=== PATIENT | female | born 1965 | race Caucasian/White ===

== ENCOUNTER 2018-05-31 00:05 | Observation (INO) | payer SELFPAY ==
--- NOTE | 2018-05-31 00:11 | ER Document Report ---
ED Cardiac - General Stated Complaint: CHEST PAIN Time Seen by Provider: 05/31/18 00:10 Notes: 53-year-old female patient to the emergency department via EMS for severe chest pain. Patient states that she was watching TV when all of a sudden she developed severe chest pain. Pain radiated to her bilateral shoulders. Recently she describes having nausea that comes and goes. Some dyspnea with exertion as well as generally feeling tired. Patient does smoke and has for 40 years. Does not go to the doctor. Family history of heart disease. Father had 5 heart attacks but in his 80s. - HPI Patient complains to provider of: Chest pain Use of: denies: Alcohol, Amphetamines, Bath salts, Caffeine, Cocaine, Decongestants, Other Was the onset of pain: Sudden Is the pain a: New problem Chest pain location: Back Quality of pain: Stabbing Chest pain radiation location: Left shoulder, Right shoulder, Back Severity now: None Severity at worst: Severe Pain level currently: 0 Chest pain precipitating factors: At Rest Cardiac risk factors: Smoker, + Family history Positive cardiac history: No Associated symptoms: Nausea/vomiting Past Medical History - General Information source: Patient - Social History Smoking Status: Current Every Day Smoker Cigarette use (# per day): Yes Frequency of alcohol use: Occasional Drug Abuse: None Lives with: Family Family History: CAD, Hypertension, Malignancy Review of Systems - Review of Systems Notes: Constitutional: denies: Chills, fever, weakness EENT: denies: Eye discharge, Blurred vision, Tearing, Double vision, Nose congestion, Nose discharge, Throat swelling, Mouth pain Cardiovascular: Chest pain. Denies tachycardia, does endorse some dyspnea with exertion. Respiratory: denies: Cough, Hurts to breathe, Wheezing, Shortness of breath Gastrointestinal: denies: Abdominal pain, Diarrhea, Vomiting, Black stools. Does endorse that she has had some nausea recently Genitourinary: denies: Burning, Dysuria, Discharge, Frequency, Flank pain, Hematuria Musculoskeletal: denies: Joint pain, Joint swelling, Muscle pain, Muscle stiffness, back pain Hematologic/Lymphatic: denies: Anemia, Easy bleeding, Easy bruising, Blood clots Neurological/Psychological: denies: Confusion, Dementia, Depression, Loss of consciousness Physical Exam - Vital signs Vitals: Temp Pulse Resp BP Pulse Ox 98.5 F 73 18 106/76 99 05/31/18 00:15 05/31/18 00:15 05/31/18 00:15 05/31/18 00:15 05/31/18 00:15 Interpretation: Normal - General General appearance: Appears well, Alert - HEENT Head: Normocephalic, Atraumatic Eyes: Normal Pupils: PERRL - Respiratory Respiratory status: No respiratory distress Chest status: Nontender Breath sounds: Normal Chest palpation: Normal - Cardiovascular Rhythm: Regular Heart sounds: Normal auscultation Murmur: No - Abdominal Inspection: Normal Distension: No distension Bowel sounds: Normal Tenderness: Nontender Organomegaly: No organomegaly - Back Back: Normal, Nontender - Extremities General upper extremity: Normal inspection, Nontender, Normal color, Normal ROM , Normal temperature General lower extremity: Normal inspection, Nontender, Normal color, Normal ROM , Normal temperature, Normal weight bearing. No: Doc's sign - Neurological Neuro grossly intact: Yes Cognition: Normal Orientation: AAOx4 Ezio Coma Scale Eye Opening: Spontaneous [place] Coma Scale Verbal: Oriented [place] Coma Scale Motor: Obeys Commands [place] Coma Scale Total: 15 Speech: Normal Motor strength normal: LUE, RUE, LLE, RLE Sensory: Normal - Psychological Associated symptoms: Normal affect, Normal mood - Skin Skin Temperature: Warm Skin Moisture: Dry Skin Color: Normal Course - Re-evaluation Re-evalutation: 05/31/18 01:06 First set of labs are unremarkable. EKG normal. Troponin is negative. Patient is a smoker female who described chest pain at rest that radiated to her back. Does have a positive family history. Patient does need to be admitted for rule out. Will consult with hospitalist for admission at this time. Aspirin has been given. She is chest pain-free at this time resting in no acute distress. 05/31/18 01:17 Laboratory 05/30/18 05/30/18 05/30/18 23:35 23:35 23:35 WBC 8.6 RBC 4.18 Hgb 13.0 Hct 38.4 MCV 92 MCH 31.0 MCHC 33.7 RDW 15.0 H Plt Count 483 H Seg Neutrophils % 35.3 L Lymphocytes % 52.6 H Monocytes % 7.9 Eosinophils % 3.5 Basophils % 0.7 Absolute Neutrophils 3.0 Absolute Lymphocytes 4.5 Absolute Monocytes 0.7 Absolute Eosinophils 0.3 Absolute Basophils 0.1 Sodium 141.7 Potassium 4.4 Chloride 105 Carbon Dioxide 28 Anion Gap 9 BUN 14 Creatinine 0.68 Est GFR ( Amer) > 60 Est GFR (Non-Af Amer) > 60 Glucose 88 Calcium 9.9 Total Bilirubin 0.5 Direct Bilirubin 0.3 Neonat Total Bilirubin Not Reportable Neonat Direct Bilirubin Not Reportable Neonat Indirect Bili Not Reportable AST 56 H ALT 23 Alkaline Phosphatase 46 Creatine Kinase 87 CK-MB (CK-2) 1.69 Troponin I < 0.012 Total Protein 7.4 Albumin 4.3 Chest X-Ray 05/31/18 00:09 IMPRESSION: There is no acute pleural-parenchymal process seen in the imaged lung rubio. Location of Interpretation: [facility] - Vital Signs Vital signs: Temp Pulse Resp BP Pulse Ox 98.5 F 73 18 106/76 99 05/31/18 00:15 05/31/18 00:15 05/31/18 00:15 05/31/18 00:15 05/31/18 00:15 - Laboratory Result Diagrams: 05/30/18 23:35 05/30/18 23:35 Laboratory results interpreted by me: 05/30/18 05/30/18 23:35 23:35 RDW 15.0 H Plt Count 483 H Seg Neutrophils % 35.3 L Lymphocytes % 52.6 H AST 56 H - EKG Interpretation by La EKG shows normal: Sinus rhythm, [place], Intervals, QRS Complexes, ST-T Waves Discharge - Discharge Clinical Impression: Chest pain at rest Condition: Good Disposition: ADMITTED OBSERVATION Admitting Provider: Hospitalist - [facility] Unit Admitted: Telemetry
[2018-05-31 00:26] LABS: ABSOLUTE BASOPHILS # (AUTO) 0.1 10^3/uL (0.0-0.2); ABSOLUTE EOSINOPHILS # (AUTO) 0.3 10^3/uL (0.0-0.6); ABSOLUTE LYMPHOCYTES (AUTO) 4.5 10^3/uL (0.5-4.7); ABSOLUTE MONOCYTES (AUTO) 0.7 10^3/uL (0.1-1.4); BASOPHILS % (AUTO) 0.7 % (0-2); EOSINOPHILS % (AUTO) 3.5 % (0-6); HEMATOCRIT 38.4 % (36.0-47.0); LYMPHOCYTES % (AUTO) 52.6 % (13-45); MEAN CORPUSCULAR HGB CONC 33.7 g/dL (32.0-36.0); MEAN CORPUSCULAR VOLUME 92 fl (80-97); MONOCYTES % (AUTO) 7.9 % (3-13); PLATELET COUNT 483 10^3/uL (150-450); RED BLOOD COUNT 4.18 10^6/uL (3.72-5.28); SEGMENTED NEUTROPHILS % (AUTO) 35.3 % (42-78); TOTAL CELLS COUNTED % (AUTO) 100 %; WHITE BLOOD COUNT 8.6 10^3/uL (4.0-10.5)
[2018-05-31 00:41] LABS: ALANINE AMINOTRANSFERASE 23 U/L (9-52); ALBUMIN 4.3 g/dL (3.5-5.0); ALKALINE PHOSPHATASE 46 U/L (38-126); ANION GAP 9 (5-19); ASPARTATE AMINO TRANSFERASE 56 U/L (14-36); BILIRUBIN,DIRECT 0.3 mg/dL (0.0-0.4); BILIRUBIN,TOTAL 0.5 mg/dL (0.2-1.3); BLOOD UREA NITROGEN 14 mg/dL (7-20); CALCIUM 9.9 mg/dL (8.4-10.2); CARBON DIOXIDE 28 mmol/L (22-30); CHLORIDE 105 mmol/L (98-107); CREATINE KINASE 87 U/L (30-135); GLUCOSE 88 mg/dL (75-110); POTASSIUM 4.4 mmol/L (3.6-5.0); SODIUM 141.7 mmol/L (137-145); TOTAL PROTEIN 7.4 g/dL (6.3-8.2)
--- NOTE | 2018-05-31 00:49 | RADIOLOGY REPORT (SQ) ---
PROCEDURE: XR CHEST 1 VIEW HISTORY: CP COMPARISON: None TECHNIQUE: Single projection of the chest was done. FINDINGS: The lung rubio are well inflated . There are no discrete airspace infiltrates, pneumothoraces or pleural effusions. The pulmonary vascularity is normal. The cardiomediastinal silhouette is unremarkable for patient's age and sex. IMPRESSION: There is no acute pleural-parenchymal process seen in the imaged lung rubio. Location of Interpretation: [facility]
[2018-05-31 00:51] LABS: CREATINE KINASE MB 1.69 ng/mL (<4.55)
[2018-05-31 00:52] LABS: TROPONIN I < 0.012 ng/mL
[2018-05-31] MEDS ORDERED: DEXTROSE 50%-WATER 25 GM/50 ML DISP.SYRIN IV PRN ×2 (01:26)
[2018-05-31] MEDS ORDERED: DEXTROSE 40% GEL 15 GM TUBE PO PRN ×2 (01:26)
[2018-05-31] MEDS ORDERED: GLUCAGON,HUMAN RECOMB 1 MG INJ SUBCUT PRN (01:26)
[2018-05-31 05:41] LABS: CHOLESTEROL 248.79 mg/dL (0-200); TRIGLYCERIDES 127 mg/dL (<150)
[2018-05-31 05:51] LABS: DIRECT LDL 129 mg/dL (<100)
[2018-05-31] MEDS ORDERED: IBUPROFEN 600 MG TABLET PO ONE (06:33)
--- NOTE | 2018-05-31 07:23 | PDOC H&P ---
History of Present Illness Admission Date/PCP: 05/31/18 01:22 none Patient complains of: Chest pain History of Present Illness: RUSSELL FANG is a 53 year old female with past medical history smoking and family history of CAD presents with chest pain. Patient states that she was watching TV when all of a sudden she developed severe chest pain. Pain radiated to her bilateral shoulders. Recently she describes having nausea that comes and goes. Some dyspnea with exertion as well as generally feeling tired. Patient does smoke and has for 40 years. Family history of heart disease. Father had 5 heart attacks but in his 80s. Patient denies fever chills or cough or abdominal pain. Patient's vitals were stable on arrival to emergency room. EKG showed sinus rhythm with nonspecific ST-T changes. Her troponin was negative. Chest x-ray was unremarkable. Social History Information Source: Patient Lives with: Family Smoking Status: Current Every Day Smoker Family History Family History: CAD, Hypertension, Malignancy Parental Family History Reviewed: No Children Family History Reviewed: No Sibling(s) Family History Reviewed.: No Medication/Allergy Allergies/Adverse Reactions: morphine Allergy (Verified 05/31/18 01:47) Hives Review of Systems All systems: reviewed and no additional remarkable complaints except as stated Physical Exam Vital Signs: Temp Pulse Resp BP Pulse Ox 98.5 F 73 12 120/66 96 05/31/18 00:15 05/31/18 00:15 05/31/18 05:31 05/31/18 05:31 05/31/18 05:31 General appearance: PRESENT: no acute distress, cooperative, thin, well- developed Head exam: PRESENT: atraumatic, normocephalic Eye exam: ABSENT: conjunctival injection, conjunctiva pink, conjunctiva pale, EOMI, nystagmus, periorbital swelling, PERRLA, scleral icterus, other Ear exam: ABSENT: bleeding, drainage, normal external ear exam, TM's normal bilaterally, other Neck exam: ABSENT: carotid bruit, JVD Respiratory exam: PRESENT: clear to auscultation toy. ABSENT: rhonchi, wheezes Cardiovascular exam: PRESENT: RRR, +S1, +S2. ABSENT: gallop, rubs, systolic murmur GI/Abdominal exam: PRESENT: normal bowel sounds, soft. ABSENT: organolmegaly, tenderness Rectal exam: PRESENT: deferred Neurological exam: PRESENT: alert, altered, awake, oriented to person, oriented to place, oriented to time, oriented to situation. ABSENT: motor sensory deficit Psychiatric exam: ABSENT: suicidal ideation Skin exam: ABSENT: rash Results Laboratory Results: 05/31/18 04:30 Triglycerides 127 Cholesterol 248.79 H LDL Cholesterol Direct 129 H VLDL Cholesterol 25.0 HDL Cholesterol 70 05/31/18 04:30 Troponin I 0.151 Impressions: Chest X-Ray 05/31/18 00:09 IMPRESSION: There is no acute pleural-parenchymal process seen in the imaged lung rubio. Location of Interpretation: [facility] Status: Image reviewed by me Assessment & Plan - Diagnosis (1) Chest pain at rest Is this a current diagnosis for this admission?: Yes Plan: Patient with significant family history and history of smoking presents with chest pain at rest. Will rule out ACS with serial cardiac enzyme will continue aspirin and start statin and nitroglycerin as needed.. Will consult cardiology service for further recommendation. (2) Smoker Is this a current diagnosis for this admission?: No - Time Time Spent: 30 to 50 Minutes
[2018-05-31] MEDS ORDERED: HYDROCODONE/ACETAMINOPHEN 5-325 MG TABLET ONE (12:00)
[2018-05-31] MEDS: ENOXAPARIN SODIUM INJ 40 MG/0.4 ML DISP.SYRIN SUBCUT SCH ×2 (12:01→12:31)
[2018-05-31] MEDS: ASPIRIN 325 MG TABLET, ENT COATED PO SCH (12:03)
[2018-05-31] MEDS ORDERED: HYDROCODONE/ACETAMINOPHEN 5-325 MG TABLET PO ONE (12:30)
--- NOTE | 2018-05-31 18:11 | RADIOLOGY REPORT (SQ) ---
EXAM DESCRIPTION: CT CHEST WITH COMPLETED DATE/TIME: 05/31/2018 6:00 pm REASON FOR STUDY: Chest Pain COMPARISON: None. TECHNIQUE: CT scan of the chest performed using helical scanning technique with dynamic intravenous contrast injection. Images reviewed with lung, soft tissue and bone windows. Reconstructed coronal and sagittal MPR images reviewed. All images stored on PACS. All CT scanners at this facility use dose modulation, iterative reconstruction, and/or weight based d osing when appropriate to reduce radiation dose to as low as reasonably achievable (ALARA). [facility]: Dose Right [facility]: CareDose [facility]: Dose Right [facility]: Teradose 4D [facility]: CustomInk CONTRAST TYPE AND DOSE: contrast/concentration: Isovue 370.00 mg/ml; Total Contrast Delivered: 80.0 ml; Total Saline Delivered: 50.0 ml RENAL FUNCTION: Creatinine 0.68 RADIATION DOSE: CT Rad equipment meets quality standard of care and radiation dose reduction techniq ues were employed. CTDIvol: 5.2 mGy. DLP: 208 mGy-cm. . LIMITATIONS: None. FINDINGS: LUNGS AND PLEURA: No opacities, nodules, masses. No pneumothorax. No effusions. HILAR AND MEDIASTINAL STRUCTURES: No identified masses or abnormal nodes. HEART AND VASCULAR STRUCTURES: No aneurysm or dissection. No central pulmonary emboli. No pericardi al effusion. HARDWARE: None in the chest. UPPER ABDOMEN: An enhancing mass is identified in the right lobe of the liver measuring 1.8 cm most c onsistent with an hemangioma although follow-up is recommended. THYROID AND OTHER SOFT TISSUES: A small thyroid nodule is identified on the left. No adenopathy. BONES: No significant finding. OTHER: No other significant finding. IMPRESSION: No significant intrathoracic abnormalities were identified. Other findings as noted abo ve. TECHNICAL DOCUMENTATION: JOB ID: [id number] Quality ID # [id number]: Final reports with documentation of one or more dose reduction techniques (e.g., Au tomated exposure control, adjustment of the mA and/or kV according to patient size, use of iterative reconstruction technique) 2010 [employer]- All Rights Reserved Reading location - IP/workstation name: [email or web address]
--- NOTE | 2018-05-31 18:54 | PDOC PROGRESS REPORT ---
Subjective Progress Note for:: 05/31/18 Subjective:: 53 years old white female with history of smoking and family history of coronary artery disease presents with atypical chest pain He is currently chest pain-free so far EKG troponin and CT angiogram of the chest are unremarkable Reason For Visit: CHEST PAIN Physical Exam Vital Signs: Temp Pulse Resp BP Pulse Ox 97.7 F 60 18 119/61 100 05/31/18 15:50 05/31/18 15:50 05/31/18 15:50 05/31/18 15:50 05/31/18 15:50 Intake & Output 05/30/18 05/31/18 06/01/18 06:59 06:59 06:59 Intake Total 1000 Balance 1000 Weight 137 lb 5.568 oz Exam: Patient no acute distress Alert oriented to time place person No anxiety or depression Head atraumatic normocephalic Pupils are equal reactive Regular rate and rhythm Lungs clear no distress Abdomen nontender nondistended Neurological exam unremarkable Results Laboratory Results: 05/31/18 04:30 Triglycerides 127 Cholesterol 248.79 H LDL Cholesterol Direct 129 H VLDL Cholesterol 25.0 HDL Cholesterol 70 05/31/18 05/31/18 04:30 10:32 Troponin I 0.151 0.167 Impressions: Chest CT 05/31/18 00:00 IMPRESSION: No significant intrathoracic abnormalities were identified. Other findings as noted above. Chest X-Ray 05/31/18 00:09 IMPRESSION: There is no acute pleural-parenchymal process seen in the imaged lung rubio. Location of Interpretation: [facility] Assessment & Plan - Diagnosis (1) Chest pain at rest Is this a current diagnosis for this admission?: Yes Plan: EKG troponins and CT angiogram of the chest are unremarkable Echo pending Stress test scheduled for tomorrow (2) Smoker Is this a current diagnosis for this admission?: No Plan: Patient was counseled
--- NOTE | 2018-05-31 19:11 | XCELERA REPORT ---
[address] [address] Transthoracic Echocardiogram Report Name: RUSSELL FANG Age: 53 yrs Gender: Female : 1965 Patient Status: Inpatient Patient Location: [address] [place], [place] [id number] Study Date: 05/31/2018 01:50 PM Procedure: A two-dimensional transthoracic echocardiogram with color flow Doppler was performed. Study Quality: Fair. Reason For Study: CHEST PAIN / MURMUR History: CHEST PAIN / MURMUR. Ordering Physician: MONI CARVER Performed By: Mireya Rizzo Interpretation Summary The left ventricle is normal in size. There is normal left ventricular wall thickness. LV EF is 65% Left ventricular systolic function is normal. Doppler measurements suggest normal left ventricular diastolic function The left ventricular wall motion is normal. There is no thrombus. There is no ventricular septal defect visualized. The right ventricle is normal in size and function. The right atrium is normal. The left atrial size is normal. The interatrial septum is intact with no evidence for an atrial septal defect. There is no evidence of mitral valve prolapse. There is no vegetation seen on the mitral valve. There is no mitral valve stenosis. There is no mitral regurgitation noted. There is no aortic valvular vegetation. There is no aortic valve stenosis No aortic regurgitation is present. There is no tricuspid stenosis. There is a trace amount of tricuspid regurgitation Right ventricular systolic pressure is normal. RVSP is 15 to 20 mm of Hg , with RA mean of 5 to 10. There is no pulmonic valvular stenosis. There is no pulmonic valvular regurgitation. The aortic root is normal size. The inferior vena cava appeared normal and decreased > 50% with respiration (RAP 5-10 mmHg) There is no pericardial effusion. MMode/2D Measurements & Calculations RVDd: 2.0 cm LVIDd: 4.9 cm FS: 38.5 % Ao root diam: 2.8 cm IVSd: 0.71 cm LVIDs: 3.0 cm EDV(Teich): 110.3 mlAo root area: 6.4 cm2 LVPWd: 0.77 cmESV(Teich): 34.6 ml EF(Teich): 68.7 % LVOT diam: 1.8 cm LVOT area: 2.5 cm2 Doppler Measurements & Calculations MV E max latonia: MV dec slope: Ao V2 max: LV V1 max P.4 cm/sec 119.8 cm/sec 5.1 mmHg MV A max latonia: 360.2 cm/sec2 Ao max PG: LV V1 max: 74.3 cm/sec MV dec time: 5.8 mmHg 112.5 cm/sec MV E/A: 1.1 0.23 sec SARAH(V,D): 2.4 cm2 PA V2 max: TR max latonia: 71.4 cm/sec 160.9 cm/sec PA max PG: TR max P.4 mmHg 2.0 mmHg Left Ventricle The left ventricle is normal in size. There is normal left ventricular wall thickness. LV EF is 65%. Left ventricular systolic function is normal. Doppler measurements suggest normal left ventricular diastolic function. The left ventricular wall motion is normal. There is no thrombus. There is no ventricular septal defect visualized. Right Ventricle The right ventricle is normal in size and function. Atria The right atrium is normal. The left atrial size is normal. The interatrial septum is intact with no evidence for an atrial septal defect. Mitral Valve There is no evidence of mitral valve prolapse. There is no vegetation seen on the mitral valve. There is no mitral valve stenosis. There is no mitral regurgitation noted. Aortic Valve There is no aortic valvular vegetation. There is no aortic valve stenosis. No aortic regurgitation is present. Tricuspid Valve There is no tricuspid stenosis. There is a trace amount of tricuspid regurgitation. Right ventricular systolic pressure is normal. RVSP is 15 to 20 mm of Hg , with RA mean of 5 to 10. Pulmonic Valve There is no pulmonic valvular stenosis. There is no pulmonic valvular regurgitation. Great Vessels The aortic root is normal size. The inferior vena cava appeared normal and decreased > 50% with respiration (RAP 5-10 mmHg). Effusions There is no pericardial effusion. : MONI CARVER > Moni Carver
[2018-05-31] MEDS: NICOTINE 21 MG/24 HR PATCH.TD24 TD SCH (19:49)
[2018-05-31] MEDS: NITROGLYCERIN 0.4 MG/TAB 25 TAB/BOTTLE SL PRN (21:09)
[2018-05-31] MEDS ORDERED: ATORVASTATIN CALCIUM 40 MG TABLET PO SCH (22:00)
[2018-05-31] MEDS ORDERED: LORAZEPAM 0.5 MG TABLET PO ONE (22:00)
--- NOTE | 2018-05-31 22:27 | EKG REPORT ---
SEVERITY:- ABNORMAL ECG - SINUS RHYTHM NONSPECIFIC INTRAVENTRICULAR CONDUCTION DELAY : Confirmed by: Chidi Rivera 31-May-2018 22:27:19
[2018-06-01 06:25] LABS: HEMATOCRIT 38.3 % (36.0-47.0); HEMOGLOBIN 12.9 g/dL (12.0-15.5); MEAN CORPUSCULAR HEMOGLOBIN 30.8 pg (27.0-33.4); MEAN CORPUSCULAR HGB CONC 33.7 g/dL (32.0-36.0); MEAN CORPUSCULAR VOLUME 91 fl (80-97); PLATELET COUNT 436 10^3/uL (150-450); RED CELL DISTRIBUTION WIDTH 14.8 % (11.5-14.0); WHITE BLOOD COUNT 9.3 10^3/uL (4.0-10.5)
[2018-06-01 06:41] LABS: CHOLESTEROL 270.52 mg/dL (0-200); TRIGLYCERIDES 156 mg/dL (<150)
[2018-06-01 06:52] LABS: DIRECT LDL 144 mg/dL (<100)
[2018-06-01 06:53] LABS: VLDL CHOLESTEROL 31.2 mg/dL (10-31)
[2018-06-01] MEDS: NITROGLYCERIN 0.4 MG/TAB 25 TAB/BOTTLE SL PRN ×2 (07:24→07:30)
[2018-06-01] MEDS ORDERED: NITROGLYCERIN/D5W 50 MG/250 ML RTUINJ IV ONE (07:34)
[2018-06-01] MEDS ORDERED: HYDROMORPHONE HCL INJ/PF 2 MG/ML AMPULE ONE (07:35)
[2018-06-01] MEDS ORDERED: NITROGLYCERIN 50 MG/D5W 250 ML IV PRN (07:40)
[2018-06-01] MEDS ORDERED: HYDROMORPHONE HCL INJ/PF 2 MG/ML AMPULE IV ONE (09:15)
[2018-06-01] MEDS ORDERED: ENOXAPARIN SODIUM INJ 60 MG/0.6 ML DISP.SYRIN SUBCUT ONE (09:15)
[2018-06-01] MEDS: HYDROMORPHONE HCL INJ/PF 2 MG/ML AMPULE INJ PRN ×2 (09:43→10:44)
[2018-06-01] MEDS: ASPIRIN 325 MG TABLET, ENT COATED PO SCH (10:24)
[2018-06-01] MEDS: NICOTINE 21 MG/24 HR PATCH.TD24 TD SCH (10:25)
[2018-06-01 11:28] VITALS: BP 115/72
[2018-06-01] MEDS: HYDROMORPHONE HCL INJ/PF 2 MG/ML AMPULE IV PRN ×2 (11:52→12:45)
--- NOTE | 2018-06-01 11:52 | PDOC TRANSFER SUMMARY ---
General Admission Date/PCP: 05/31/18 01:22 Admission Date: 05/31/18 Transfer Date: 06/01/18 Accepting Facility: [facility] Accepting Physician: Edison Horton MD Resuscitation Status: Full Code - Transfer Diagnosis (2) Chest pain at rest Is this a current diagnosis for this admission?: Yes (3) Smoker Is this a current diagnosis for this admission?: No - Transfer Medications Home Medications: No Home Medications 05/31/18 Transfer Medications: Current Medications Aspirin (Ecotrin 325 Mg Ec Tablet) 325 mg PO DAILY HANSA Stop: 06/30/18 09:59 Last Admin: 06/01/18 10:24 Dose: 325 mg Atorvastatin Calcium (Lipitor 40 Mg Tablet) 40 mg PO QHS [facility] Stop: 06/30/18 21:59 Last Admin: 05/31/18 21:09 Dose: 40 mg Dextrose (Dextrose Inj 50% Syringe (25 Gm/50 Ml)) 12.5 gm IV PRN PRN; Protocol PRN Reason: FOR BG 50-69 IN ALERT PATIENT Stop: 06/30/18 01:25 Dextrose (Dextrose Inj 50% Syringe (25 Gm/50 Ml)) 25 gm IV PRN PRN; Protocol PRN Reason: See Label Comments Stop: 06/30/18 01:25 Enoxaparin Sodium (Lovenox Inj 60 Mg/0.6 Ml Disp.Syrin) 60 mg SUBCUT Q12 HANSA Stop: 07/01/18 21:59 Glucagon (Glucagen Inj 1 Mg Vial) 1 mg SUBCUT PRN PRN; Protocol PRN Reason: Evaluate for BG < 70 Stop: 06/30/18 01:25 Glucose (Glutose 40% Gel 15 Gm Tube) 30 gm PO PRN PRN; Protocol PRN Reason: FOR BG < 50 IN ALERT PATIENT Stop: 06/30/18 01:25 Glucose (Glutose 40% Gel 15 Gm Tube) 15 gm PO PRN PRN; Protocol PRN Reason: For BG 50-69 in Alert Patient Stop: 06/30/18 01:25 Hydromorphone HCl (Dilaudid Inj/Pf 2 Mg/Ml Ampule) 1 mg INJ .X1 PRN PRN Reason: THIS MED IS NOT "PRN" Stop: 06/01/18 23:59 Last Admin: 06/01/18 10:44 Dose: 1 mg Hydromorphone HCl (Dilaudid Inj/Pf 2 Mg/Ml Ampule) 1 mg IV Q30MP PRN PRN Reason: CHEST PAIN Nitroglycerin/Dextrose (Ntg Rtu 50 Mg/D5w 250 Ml Iv Premix Bottle) 50 mg in 250 mls @ 0 mls/hr IV CONTINUOUS PRN; Protocol; Titrate PRN Reason: THIS MED IS NOT "PRN" Stop: 07/01/18 07:39 Last Titration: 06/01/18 11:10 Dose: 19.5 ml/hr, 19.5 mls/hr Nicotine (Nicoderm 21 Mg/24 Hr Transderm Patch) 1 each TD DAILY HANSA Stop: 06/30/18 19:29 Last Admin: 06/01/18 10:25 Dose: 1 each Sodium Chloride (Saline Flush 2.5 Ml Monoject Prefil Syrin) 2.5 ml IV Q8 HANSA Stop: 06/30/18 05:59 Last Admin: 06/01/18 05:55 Dose: 2.5 ml - Allergies Allergies/Adverse Reactions: morphine Allergy (Verified 05/31/18 01:47) Hives - Diet/Activity Discharge Diet: Other (Comments) - NPO Discharge Activity: Bedrest Hospital Course Hospital Course: 53 years old white female was history of smoking and family history of coronary artery disease. She presented was acute onset chest pain that occurred at rest. Patient was initially admitted for observation to rule out acute myocardial infarction. Her second troponin was elevated. Her chest pain did not resolve and she required IV nitroglycerin drip and multiple doses of IV Dilaudid. Her EKG did not show any ST elevations. Patient had nitroglycerin drip up to 60 mics per minute. Patient will be transferred to a tertiary hospital for possible cardiac cath. All video clerk already communicated with the outside facility video clerk and they accepted the patient. Physical Exam Vital Signs: Temp Pulse Resp BP Pulse Ox 98.2 F 61 18 115/72 97 06/01/18 02:53 06/01/18 11:15 05/31/18 23:24 06/01/18 11:15 06/01/18 02:53 Intake & Output 05/31/18 06/01/18 06/02/18 06:59 06:59 06:59 Intake Total 2562 68 Balance 2562 68 Weight 138 lb 14.259 oz Exam: Alert oriented to time place person Head atraumatic normocephalic Pupils are equal reactive Regular rate and rhythm Lungs clear no distress Abdomen nontender nondistended Neurological exam unremarkable Results Laboratory Results: 06/01/18 06:01 06/01/18 06/01/18 06:01 06:01 WBC 9.3 RBC 4.20 Hgb 12.9 Hct 38.3 MCV 91 MCH 30.8 MCHC 33.7 RDW 14.8 H Plt Count 436 Triglycerides 156 H Cholesterol 270.52 H LDL Cholesterol Direct 144 H VLDL Cholesterol 31.2 H HDL Cholesterol 65 05/31/18 05/31/18 05/31/18 04:30 10:32 18:30 Troponin I 0.151 0.167 0.185 06/01/18 06/01/18 06:01 07:45 Troponin I 0.178 0.155 Impressions: Chest CT 05/31/18 00:00 IMPRESSION: No significant intrathoracic abnormalities were identified. Other findings as noted above. Chest X-Ray 05/31/18 00:09 IMPRESSION: There is no acute pleural-parenchymal process seen in the imaged lung rubio. Location of Interpretation: [facility]eleradiology
[2018-06-01] MEDS ORDERED: PROMETHAZINE HCL INJ 25 MG/1 ML VIAL ONE (12:43)
--- NOTE | 2018-06-01 18:15 | EKG REPORT ---
SEVERITY:- BORDERLINE ECG - SINUS RHYTHM BORDERLINE T ABNORMALITIES, ANT-LAT LEADS : Confirmed by: Chidi Rivera 01-Jun-2018 18:14:45
--- NOTE | 2018-06-01 18:15 | EKG REPORT ---
SEVERITY:- ABNORMAL ECG - SINUS RHYTHM ABNRM R PROG, CONSIDER ASMI OR LEAD PLACEMENT : Confirmed by: Chidi Rivera 01-Jun-2018 18:14:50
[2018-06-01] MEDS ORDERED: ENOXAPARIN SODIUM INJ 60 MG/0.6 ML DISP.SYRIN SUBCUT SCH (22:00)
--- NOTE | 2018-06-01 22:05 | PROGRESS NOTE E ---
Progress Note NAME: RUSSELL FANG : 1965 AGE: 53Y DATE: 06/01/2018 ROOM: 304 SUBJECTIVE: The patient started having sudden onset of left-sided chest pressure, 5/10. The patient also is diaphoretic and short of breath. On examination, there is no heart failure. There is no evidence seen on the monitor. In spite of chest pain being 5/10, her heart rate still is around 62 beats per minute. She denies any PND, orthopnea or leg edema. There is no arrhythmia seen on the monitor. The patient has some nausea, but no nausea. OBJECTIVE: GENERAL: On examination, the patient is well-built and well-nourished, in some distress due to chest pain. VITAL SIGNS: She is afebrile, with a temperature of 98.5 degrees Fahrenheit. Pulse is 62 beats per minute and regular rhythm. Blood pressure is 103/66. This is with the patient being on nitroglycerin drip at 60 mcg/min. Note, in view of the patient's chest pain, nitroglycerin was started at 10 and titrated upwards. Her respirations were 16 per minute. O2 sats are 96% on 2 liters nasal cannula. HEENT: Head is atraumatic, normocephalic. Eyes: Pupils equal, round, regular, reactive to light and accommodation. Extraocular movements are normal. There is no conjunctival pallor. There is no scleral icterus. Ears: Tympanic membranes are intact. External auditory canals are clear. Nose: There is no deviated nasal septum. There is no inflammation of the nasal mucous membranes. Mouth: Mucous membranes of the mouth are moist. Tongue is moist. There is no obstructive *------*. Throat: There is no redness of the oropharynx. There are no exudates. SKIN: There is no skin rash. There are no skin lesions. There are no petechiae or ecchymoses. NECK: Supple. There is no JVD. Carotids are equal. There is no bruit. There is no lymphadenopathy. There is no goiter. Trachea central. CHEST: Clear to auscultation and percussion. There are no accessory muscles of respiration in use. There is no chest wall tenderness. Lungs are clear without any rhonchi, rales or wheezing. HEART: S1, S2 are heard. There is no S3 gallop. There is no S4 gallop. There is a systolic murmur at the left sternal border at the apex, without radiation. There is no rub. ABDOMEN: Soft, nontender. There is no hepatosplenomegaly. Bowel sounds are well-heard. There are no tender areas or masses. EXTREMITIES: Femorals are well-felt. Leg pulses are well-felt. There are no femoral bruits. There is no pedal edema. There is no cyanosis or clubbing. There is no DVT or cellulitis. There is no calf tenderness. VET TECH: The patient is conscious, awake, alert, oriented x3 with no focal deficits. PSYCHIATRIC: In spite of her chest pain, the patient's judgment and insight are intact. Her affect is normal. DIAGNOSTICS: The patient's initial EKG showed some sinus rhythm with minor nonspecific anterior T changes. Subsequent EKG showed that the T waves were somewhat taller and more pronounced in the anterior leads, which could imply ischemia. There is no acute ST segment elevations or ST segment depressions. The patient's troponin I, which had peaked to 0.185 last night, came down to 0.178 and subsequent troponin I was 0.155, but the patient had anginal chest pains of the unstable kind. IMPRESSION: 1. Non-ST elevation CA. 2. Post infarct unstable angina. 3. Hyperlipidemia. 4. *------* disorder. 5. Mildly abnormal liver function tests. PLAN: In view of the patient's chest pain, the patient will be given Dilaudid 2 mg intravenously x1 now and repeat as needed. The patient's nitroglycerin, as mentioned earlier, has been titrated up to 60 mcg/min. Also, in view of the patient's bradycardia, unable to put the patient on any beta santana, since a meaningful dose cannot be given. Continue patient's aspirin. The patient is also placed on Lovenox at 1 mg/kg subcutaneously x1 now and q.12 hours. Recommend that the patient be transferred to a tertiary care center for urgent/emergent cardiac catheterization. This was discussed with the patient and the patient is agreeable. Discussed with Dr. Edison Horton, director athletic from [facility]. The case was discussed with him and he accepted the patient. The patient is aware of the benefits and risks of the transfer. Medication has been reviewed and medications adjusted. Discussed with the hospitalist. Medical decision-making is of high complexity. Will sign off the case. The patient is asked to follow up with me after she comes back from the cardiac catheterization. The patient has my appointment card and also my cell phone number. Thank you. DICTATING PHYSICIAN: LORI CARVER M.D. [id number] PHY#: [id number] ID: [id number] JOB#: [id number] ACCT: [id number] cc: >
--- NOTE | 2018-06-02 10:41 | EKG REPORT ---
SEVERITY:- ABNORMAL ECG - SINUS RHYTHM NONSPECIFIC INTRAVENTRICULAR CONDUCTION DELAY : Confirmed by: Chidi Rivera 02-Jun-2018 10:40:47
== END 2018-06-01 14:00 | disposition short-term general hospital (02) ==
LOC: ER 00:05 → EH 01:22 → 3N 10:01
PROVIDERS: ADMIT Internal Medicine; ATTEND Internal Medicine
DX: R07.89 Other chest pain (principal); I21.4 Non-ST elevation (NSTEMI) myocardial infarction; I23.7 Postinfarction angina; R53.83 Other fatigue; R61 Generalized hyperhidrosis; F17.210 Nicotine dependence, cigarettes, uncomplicated; R06.00 Dyspnea, unspecified; R01.1 Cardiac murmur, unspecified; E78.5 Hyperlipidemia, unspecified; R79.89 Other specified abnormal findings of blood chemistry; R00.1 Bradycardia, unspecified; Z82.49 Family history of ischemic heart disease and other diseases of the circulatory system
CPT/HCPCS: 99285; 36415 ×2; 82553; 82550; 85025; 85027; 80053; 84484 ×2; 80061 ×2; 93306; 71045; 71260; 93005 ×3; 93010 ×3; G0378 ×3; J1650 ×2; J1170; J2550; J3490 ×3

== ENCOUNTER 2018-10-14 07:20 | Emergency (ER) | payer SELFPAY ==
[2018-10-14 07:28] VITALS: BP 101/58
--- NOTE | 2018-10-14 08:00 | ER Document Report ---
ED General - General Chief Complaint: Medication Refill Stated Complaint: MED REFILL Time Seen by Provider: 10/14/18 07:52 TRAVEL OUTSIDE OF THE [place] IN LAST 30 DAYS: No - HPI Notes: Patient is a 53-year-old female that presents to the emergency department for chief complaint of medication refill. Patient has bipolar disorder and has been out of her medications for the last 3 weeks. She has no current symptoms or complaints. She states she has been attempting to get a new provider which is why her current prescriptions have elapsed. She has an appointment on 11/05/17 with a new psychiatrist. She currently denies any homicidal or suicidal ideation. She denies any hallucinations. She states the medication she has been on have been the same medicines for 10 years without any changes to dosing. She has no other issues today. Past Medical History: Bipolar Past Surgical History: Negative Social History: Reviewed in chart Family History: Reviewed and noncontributory for presenting illness Allergies: Reviewed, see documented allergy list. REVIEW OF SYSTEMS: CONSTITUTIONAL : No fever No chills No diaphoresis No recent illness EENT: No vision changes No congestion No sore throat CARDIOVASCULAR: No chest pain No palpitations RESPIRATORY: No shortness of breath No cough No difficulty breathing GASTROINTESTINAL: No abdominal pain No nausea No vomiting No diarrhea GENITOURINARY: No dysuria No hematuria No difficulty urinating MUSCULOSKELETAL: No back pain No leg pain No arm pain SKIN: No rashes No lesions LYMPHATIC: No swollen, enlarged glands. NEUROLOGICAL: No lightheadedness No headache No weakness No paresthesias PSYCHIATRIC: No anxiety No depression PHYSICAL EXAMINATION: Vital signs reviewed, nursing noted reviewed. GENERAL: Well-appearing, well-nourished and in no acute distress. HEAD: Atraumatic, normocephalic. EYES: Eyes appear normal, extraocular movements intact, sclera anicteric, conjunctiva are normal. ENT: nares patent, oropharynx clear without exudates. Moist mucous membranes. NECK: Normal range of motion, supple without lymphadenopathy LUNGS: Breath sounds clear to auscultation bilaterally and equal. No wheezes rales or rhonchi. HEART: Regular rate and rhythm without murmurs ABDOMEN: Soft, nontender, normoactive bowel sounds. No rebound, guarding, or rigidity. No masses appreciated. EXTREMITIES: Nontender, good range of motion, no pitting or edema. NEUROLOGICAL: No focal neurological deficits. Moves all extremities spontaneously Motor and sensory grossly intact on exam. PSYCH: Normal mood, normal affect. SKIN: Warm, Dry, normal turgor, no rashes or lesions noted on exposed skin - Related Data Allergies/Adverse Reactions: morphine Allergy (Verified 05/31/18 01:47) Hives Past Medical History - Social History Smoking Status: Never Smoker Chew tobacco use (# tins/day): No Frequency of alcohol use: None Drug Abuse: None Family History: CAD, Hypertension, Malignancy Patient has suicidal ideation: No Patient has homicidal ideation: No Renal/ Medical History: Denies: Hx Peritoneal Dialysis Psychiatric Medical History: Reports: Hx Depression Physical Exam - Vital signs Vitals: Temp Pulse Resp BP Pulse Ox 97.5 F 78 18 101/58 L 96 10/14/18 07:23 10/14/18 07:23 10/14/18 07:23 10/14/18 07:23 10/14/18 07:23 Course - Re-evaluation Re-evalutation: 10/14/18 08:12 Vitals reviewed. Nursing notes reviewed. Patient in no acute distress with no current complaints. Her medications were verified with prescriptions present in the room. I will provide a 2-week refill of her medications. She was also referred to port to see if she could be evaluated sooner. We did discuss the side effects of her medications and the risk of restarting them after being off for a few weeks however with her being on these medicines for the last 10 years I feel it is safe for her to restart them. She was told to return to the emergency room for any new or worsening symptoms. She will follow with psychiatry as advised. She is stable at discharge. - Vital Signs Vital signs: Temp Pulse Resp BP Pulse Ox 97.5 F 78 18 101/58 L 96 10/14/18 07:23 10/14/18 07:23 10/14/18 07:23 10/14/18 07:23 10/14/18 07:23 Discharge - Discharge Clinical Impression: Medication refill Condition: Stable Disposition: HOME, SELF-CARE Instructions: Medication Side Effects ([facility]) Additional Instructions: Please return to the emergency department if you have any worsening, or concern of your symptoms. Please return to the emergency department if you develop chest pain, difficulty breathing, severe abdominal pain, or ongoing vomiting. Please follow-up with your primary care physician in 2-3 days and any other recommended physicians. If prescribed, take all medications as directed. If you have any questions or concerns do not hesitate to return the emergency department for evaluation. In the future your medications need to be refilled by your primary care physician or prescriber. Prescriptions: Quetiapine Fumarate [Seroquel] 600 mg PO QHS #14 tablet Trazodone HCl [Desyrel] 300 mg PO QHS #14 tablet Hydroxyzine Pamoate [Vistaril 50 mg Capsule] 50 mg PO TID #40 capsule Lamotrigine [Lamictal] 50 mg PO DAILY #14 tablet [place] Carbonate 300 mg PO TID #42 tablet Sertraline HCl [Zoloft 50 mg Tablet] 100 mg PO DAILY #14 tablet Referrals: [facility] [Provider Group] - Follow up tomorrow
== END 2018-10-14 08:10 | disposition home or self-care (01) ==
LOC: ER 07:20
DX: Z76.0 Encounter for issue of repeat prescription (principal); F31.9 Bipolar disorder, unspecified; T43.596A Underdosing of other antipsychotics and neuroleptics, initial encounter; T43.216A Underdosing of selective serotonin and norepinephrine reuptake inhibitors, initial encounter; T42.6X6A Underdosing of other antiepileptic and sedative-hypnotic drugs, initial encounter; T43.226A Underdosing of selective serotonin reuptake inhibitors, initial encounter; Z91.128 Patient's intentional underdosing of medication regimen for other reason; Z91.14 Patient's other noncompliance with medication regimen
CPT/HCPCS: 99281